=== PATIENT | female | born 1980 | race Caucasian/White ===

== ENCOUNTER 2025-05-27 00:27 | Emergency (ER) | payer OTHER, SELFPAY ==
[2025-05-27 00:29] VITALS: BP 136/86
[2025-05-27 03:34] LABS: HCG, Urine Qualitative Screen Negative
--- NOTE | 2025-05-27 04:04 | ED.GENMED ---
History of Present Illness
<Ching Kilgore DO, Resident - Last Filed: 05/27/25 05:58>
General
Chief Complaint: Head Injury
Source: patient
Exam Limitations: none
Time Seen by Provider: 05/27/25 03:50
Nursing documentation reviewed up to this point in time: agreed with
History of Present Illness
History of Present Illness:
Patient is a 45-year-old female with no pertinent past medical history with after a fall. 10 days ago patient slipped and fell, hitting her head on the corner of the wall behind her. Patient denies loss of consciousness. Since then patient has
had headaches which are now worsening in pain. Patient describes the pain as 7 out of 10. Patient has also had intermittent nausea and vomiting. Patient most recently threw up 4 days ago. Patient has been taking Advil and Tylenol with minimal
relief pain. Patient denies photosensitivity, worsening headaches with screen usage. Patient lives in the [place] and is visiting her parents here. Patient was planned to return to the [place] tomorrow but was encouraged to come to the ED by her mom
due to her worsening nature of her headaches
Past History
<Ching Kilgore DO, Resident - Last Filed: 05/27/25 05:58>
Past History
ED Past Medical History: None
ED Past Surgical History: Other ([place] tooth)
Social History
Tobacco: Non-smoker
Living: with family (Is visiting from [place] for the holidays. She will be here for about a week)
Employment: Employed
Review of Systems
<Ching Kilgore DO, Resident - Last Filed: 05/27/25 05:58>
Review of Systems
Allergies reviewed?: Yes
All Other Systems: ROS reviewed and negative except as documented in HPI and ROS
Constitutional: Reports no symptoms
EENT: Reports no symptoms
Respiratory: Reports no symptoms
Cardiac: Reports no symptoms
ABD/GI: Reports nausea and vomiting
: Reports no symptoms
Musculoskeletal: Reports no symptoms
Skin: Reports no symptoms
Neurological: Reports headache
Endocrine: Reports no symptoms
Hematologic/Lymphatic: Reports no symptoms
Psychiatric: Reports no symptoms
Phy Exam
<Ching Kilgore DO, Resident - Last Filed: 05/27/25 05:58>
General Physical Exam
General Presentation: well appearing and no apparent distress
General age: appears stated age
General Skin: warm and dry
General Habitus: normal
Eye Exam
Eye Exam: PERRL, EOMI and visual mason normal
Neurological Exam
Neurological Exam: alert, oriented x3, no motor deficits and speech normal
Musculoskeletal Exam
Musculoskeletal Exam: full ROM (No neck pain on palpation.)
Skin Exam
Skin Exam: normal color and warm/dry
Psychiatric Exam
Psychiatric Exam: normal mood/affect
Course
<Ching Kilgore DO, Resident - Last Filed: 05/27/25 05:58>
Orders/Labs/Results
Orders:
Orders
05/27/25 02:[address] [CT Head W/o Iv Contrast] Urgent
Comment:
Reason For Exam: head injury
Test Result ONCE
05/27/25 03:25
HCG, Urine Qualitative Screen Urgent
Date Specimen was Collected: 05/27/25
Time Specimen was Collected: 02:18
05/27/25 04:11
Acetaminophen [Tylenol] 1,000 mg PO NOW STA
Vital Signs
Initial and Last Documented VS:
Initial Vital Signs
Temp Pulse Resp BP Pulse Ox
98.9 F 88 16 136/86 99
05/27/25 00:29 05/27/25 00:29 05/27/25 00:29 05/27/25 00:29 05/27/25 00:29
Last Documented Vital Signs
Temp Pulse Resp BP Pulse Ox
98.9 F 81 16 129/85 99
05/27/25 00:29 05/27/25 05:28 05/27/25 05:28 05/27/25 05:28 05/27/25 05:28
<Indy Quesada DO - Last Filed: 05/27/25 05:28>
Orders/Labs/Results
Orders:
Orders
05/27/25 02:[address] [CT Head W/o Iv Contrast] Urgent
Comment:
Reason For Exam: head injury
Test Result ONCE
05/27/25 03:25
HCG, Urine Qualitative Screen Urgent
Date Specimen was Collected: 05/27/25
Time Specimen was Collected: 02:18
05/27/25 04:11
Acetaminophen [Tylenol] 1,000 mg PO NOW STA
Vital Signs
Initial and Last Documented VS:
Initial Vital Signs
Temp Pulse Resp BP Pulse Ox
98.9 F 88 16 136/86 99
05/27/25 00:29 05/27/25 00:29 05/27/25 00:29 05/27/25 00:29 05/27/25 00:29
Last Documented Vital Signs
Temp Pulse Resp BP Pulse Ox
98.9 F 81 16 129/85 99
05/27/25 00:29 05/27/25 05:28 05/27/25 05:28 05/27/25 05:28 05/27/25 05:28
<Ching Kilgore DO, Resident - Last Filed: 05/27/25 05:58>
MDM/Problems Addressed
Differential Diagnosis Includes:
Concussion
MDM/Problems Addressed:
CT of head showed no acute findings. Will provide patient with concussion instructions. Ready for discharge.
<Ching Kilgore DO, Resident - Last Filed: 05/27/25 05:58>
*Pulse Oximetry
SaO2: 99
Oxygen Mode of Delivery: Room air
Patient hypoxic: no
*Critical Care Note
Total Time (30-74mins, 75-104mins- exclusive of procedures): Not Applicable
ED Attending Note
<Ching Kilgore DO, Resident - Last Filed: 05/27/25 05:58>
-
Portions of this chart may have been created with voice recognition software.� Occasional wrong word or��sound alike� substitutions may have occurred due to the inherent limitations of voice recognition software.
<Indy Quesada DO - Last Filed: 05/27/25 05:28>
ED Attending Note
Patient seen and examined by attending physician: Yes
I performed a history and physical exam of patient and discussed management with resident, I reviewed resident's note and agree with documented findings and plan of care.: Yes
ED Attending Note:
This is a 45-year-old woman with no significant past medical history who slipped and fell backwards striking the back of her head 10 days ago. She denies loss of consciousness. Mild headache initially which resolved. She then developed
generalized headache a day after incident accompanied with mild nausea. Headache and nausea have persisted over the past 10 days. Temporized with Tylenol versus ibuprofen. No neck nor back pain. No weakness in her numbness nor dizziness. She is
concerned for possible concussion and was concerned that symptoms have persisted despite a week and a half.
45-year-old woman appears her stated age, awake and alert, pleasant, appears in no acute distress.
HEENT: Normocephalic, atraumatic.
Neck is supple, nontender.
Awake alert and oriented x 3. No focal neurodeficits.
Concern for concussion, closed head injury. Nothing to suggest infectious process/meningismus.
Will check CT of the head.
If unremarkable, likely headache related to mild concussion. Recommend supportive measures. Continuing ibuprofen versus Tylenol. Activities as tolerated.
Follow-up with PCP.
Discharge Plan
Departure
Patient Disposition: Home (Routine Discharge)
Date of Disposition: 05/27/25
Time of Disposition: 04:57
Patient with high blood pressure during this ER visit?: Yes
Discharge Problem:
Concussion
Instructions: Concussion, Adult (DC), BLOOD PRESSURE
Prescriptions:
No Action
hydrocodone-acetaminophen [Vicodin] 1 EACH tablet
1 ea PO Q4HPRN PRN (Reason: moderate pain) Qty: 6 0RF
sulfamethoxazole-trimethoprim 1 TABLET tablet
1 tab PO BID Qty: 14 0RF
mupirocin 22 GM ointment
22 gm TP TID Qty: 1 0RF
Interventions
Interventions:
*Risk Screen - Suicide Last Done: 05/27/25 00:29
*General Assessment Last Done: 05/27/25 00:29
*Neglect/Abuse Screening Last Done: 05/27/25 00:29
*Nursing Disposition Last Done: 05/27/25 05:28
ED- Neurological Assessment Last Done: 05/27/25 04:00
ED-Skin Assessment Last Done: 05/27/25 04:00
Discharge Date and Time
Discharge Date/Time: 05/27/25 05:28
Print Language: [id number]
[2025-05-27] MEDS: TYLENOL 1000 MG PO (04:25)
[2025-05-27 05:28] VITALS: BP 129/85
== END 2025-05-27 05:28 | disposition home or self-care (01) ==
LOC: EMR 00:27
PROVIDERS: EMERGENCY PHYSICIAN Emergency Medicine
DX: S06.0XAA Concussion with loss of consciousness status unknown, initial encounter (principal); W01.0XXA Fall on same level from slipping, tripping and stumbling without subsequent striking against object, initial encounter; R11.2 Nausea with vomiting, unspecified
CPT/HCPCS: 99284; 70450; 81025